=== PATIENT | male | born 1960 | race American Indian/Alaskan Native ===

== ENCOUNTER 2020-12-20 16:14 | Observation (INO) | payer OTHER ==
[2020-12-20] MEDS ORDERED: SODIUM CHLORIDE 0.9% 1000 ML 1,000 ML IV ONE (17:17)
[2020-12-20] MEDS ORDERED: ONDANSETRON 4 MG/2 ML INJ IV ONE (17:17)
[2020-12-20] MEDS ORDERED: MORPHINE 4 MG/1 ML INJ IV ONE (17:17)
--- NOTE | 2020-12-20 17:24 | Emergency Department Report ---
- General Chief complaint: Skin/Abscess/Foreign Body Stated complaint: PAIN/ABCESS/BUTTOCKS Time Seen by Provider: 12/20/20 17:11 Source: patient Mode of arrival: Ambulatory Limitations: No Limitations - History of Present Illness Initial comments: pt is a 60 yo male who presents to the ED with c/o right sided buttock abscess that began on 12/09/2020. he states it began worsening and increasing in size and pain in the last 5 days. he denies any abrasions, scratching, or being bit by anything that he is aware of. he denies any drainage, fever, nausea, vomiting, diarrhea, chills. he denies ever having this in the past. he states he was taking ibuprofen with some relief but states he was taking it every 3 hours. pmhx htn. he states he has not taking his BP medication in two days, he states he forgets. no allergies to meds. - Related Data Allergies Allergy/AdvReac Type Severity Reaction Status Date / Time No Known Allergies Allergy Verified 12/20/20 21:30 Abscess Boil HPI - HPI Chief Complaint: Skin/Abscess/Foreign Body Stated Complaint: PAIN/ABCESS/BUTTOCKS Time Seen by Provider: 12/20/20 17:11 Allergies/Adverse Reactions: Allergies Allergy/AdvReac Type Severity Reaction Status Date / Time No Known Allergies Allergy Verified 12/20/20 21:30 ED Review of Systems ROS: Stated complaint: PAIN/ABCESS/BUTTOCKS Other details as noted in HPI Comment: All other systems reviewed and negative ED Past Medical Hx - Past Medical History Hx Asthma: Yes Additional medical history: SLEEP APNEA - Surgical History Past Surgical History?: No - Social History Smoking Status: Current Every Day Smoker Substance Use Type: Alcohol ED Physical Exam - General Limitations: No Limitations General appearance: alert, in no apparent distress - Head Head exam: Present: atraumatic, normocephalic - Eye Eye exam: Present: normal appearance - ENT ENT exam: Present: mucous membranes moist - Respiratory Respiratory exam: Absent: respiratory distress, accessory muscle use - Rectal Rectal exam: Present: other (denture packer:андрей sullivan, 7 cm area of induration present to the inner right buttock, does not appear to involve the perineum or scrotum, no necrosis, no drainage, no opening ) - Neurological Exam Neurological exam: Present: alert, oriented X3 - Psychiatric Psychiatric exam: Present: normal affect, normal mood - Skin Skin exam: Present: warm, dry ED Course Vital Signs 12/20/20 12/20/20 12/20/20 16:27 20:01 21:31 Temperature 99 F Pulse Rate 106 H 89 Respiratory 20 18 18 Rate Blood Pressure 153/88 Blood Pressure 110/59 [Left] O2 Sat by Pulse 96 100 97 Oximetry - Consultations Consultation #1: 12/20/20 20:[address] Stanton, general surgery regarding patient presentation and results, advised to give patient Zosyn and to admit to hospitalist service, make patient n.p.o., she will consult on patient in the morning 12/20/20 20:43 called Hospitalist, they are changing shifts and advised to call back 12/20/20 21:[address] Corea, hospitalist will accept and resume care of patient, will admit to hospital service, advised to bridge to surgical unit ED Medical Decision Making - Lab Data Result diagrams: 12/20/20 17:46 12/20/20 17:46 Lab Results 12/20/20 12/20/20 Range/Units 17:46 17:46 WBC 15.8 H (4.5-11.0) K/mm3 RBC 3.70 (3.65-5.03) M/mm3 Hgb 12.0 (11.8-15.2) gm/dl Hct 35.9 (35.5-45.6) % MCV 97 H (84-94) fl MCH 32 (28-32) pg MCHC 33 (32-34) % RDW 14.2 (13.2-15.2) % Plt Count 401 (140-440) K/mm3 Lymph % (Auto) 8.8 L (13.4-35.0) % [place] % (Auto) 8.4 H (0.0-7.3) % Eos % (Auto) 0.8 (0.0-4.3) % Baso % (Auto) 0.6 (0.0-1.8) % Lymph # (Auto) 1.4 (1.2-5.4) K/mm3 [place] # (Auto) 1.3 H (0.0-0.8) K/mm3 Eos # (Auto) 0.1 (0.0-0.4) K/mm3 Baso # (Auto) 0.1 (0.0-0.1) K/mm3 Seg Neutrophils % 81.4 H (40.0-70.0) % Seg Neutrophils # 12.8 H (1.8-7.7) K/mm3 Sodium 137 (137-145) mmol/L Potassium 3.9 (3.6-5.0) mmol/L Chloride 93.1 L (98-107) mmol/L Carbon Dioxide 32 H (22-30) mmol/L Anion Gap 16 mmol/L BUN 15 (9-20) mg/dL Creatinine 1.0 (0.8-1.3) mg/dL Estimated GFR > 60 ml/min BUN/Creatinine Ratio 15 % Glucose 101 H (75-100) mg/dL Calcium 9.2 (8.4-10.2) mg/dL Total Bilirubin 1.10 (0.1-1.2) mg/dL AST 20 (5-40) units/L ALT 29 (7-56) units/L Alkaline Phosphatase 101 (35-129) units/L Total Protein 7.6 (6.3-8.2) g/dL Albumin 3.6 L (3.9-5) g/dL Albumin/Globulin Ratio 0.9 % Vital Signs 12/20/20 12/20/20 12/20/20 16:27 20:01 21:31 Temperature 99 F Pulse Rate 106 H 89 Respiratory 20 18 18 Rate Blood Pressure 153/88 Blood Pressure 110/59 [Left] O2 Sat by Pulse 96 100 97 Oximetry - Radiology Data Radiology results: report reviewed Ordering Physician: MARGARITA DOWNING Date of Service: 12/20/20 Procedure(s): CT abdomen pelvis w con Accession Number(s): [id number] cc: MARGARITA DOWNING CT ABDOMEN AND PELVIS WITH IV CONTRAST INDICATION: History of right gluteal abscess. Evaluate for perirectal abscess. TECHNIQUE: Following the administration of intravenous contrast, multiple axial CT images of the abdomen and pelvis were acquired. Sagittal and coronal reformats were obtained. All CT performed at this facility utilize dose reduction techniques including automated exposure control, iterative reconstruction and weight based dosing when appropriate to reduce patient radiation dose to as low as reasonably achievable. COMPARISON: No prior studies are available for comparison FINDINGS: Limited imaging of the bilateral lung bases demonstrates a trace right pleural effusion. ABDOMEN: The liver, gallbladder, spleen, pancreas, bilateral adrenal glands and right kidney show no evidence of acute abnormality. There is a 6 cm cyst within the lower pole of the left kidney. There is minimal dilatation of the proximal left ureter with tapering of the mid ureter without inflammatory change. The abdominal aorta is normal in caliber. There is no free fluid or evidence of bowel obstruction. The appendix is visualized and appears normal. No mesenteric adenopathy is identified. PELVIS: No free fluid is seen within the pelvis. The urinary bladder appears normal. BONES AND SOFT TISSUES: Evaluation of soft tissue structures demonstrates an enhancing fluid collection within the perirectal soft tissues, right greater than left. This fluid collection measures approximately 8.0 x 7.5 x 5.0 cm. There is moderate soft tissue swelling of the overlying gluteal soft tissues. IMPRESSION: 1. Enhancing perirectal fluid collection as described most compatible with perirectal abscess. 2. Mild dilatation of the proximal left ureter with abrupt tapering to the mid ureter. It is difficult to determine chronicity without prior studies. Considerations would include a uroepithelial lesion. 3. Small right pleural effusion. Signer Name: Janneth Rankin MD Signed: 12/20/2020 8:11 PM Workstation Name: [id number] Transcribed By: EB Dictated By: Janneth Rankin MD Electronically Authenticated By: Janneth Rankin MD Signed Date/Time: 12/20/202010 DD/ 00 TD/TT: - Medical Decision Making pt is a 60 yo male who presents to the ED with c/o right sided buttock abscess that began on 12/09/2020. he states it began worsening and increasing in size and pain in the last 5 days. he denies any abrasions, scratching, or being bit by anything that he is aware of. he denies any drainage, fever, nausea, vomiting, diarrhea, chills. he denies ever having this in the past. he states he was taking ibuprofen with some relief but states he was taking it every 3 hours. pmhx htn. he states he has not taking his BP medication in two days, he states he forgets. no allergies to meds. Initial vitals with tachycardia which improved to normal upon repeat. On exam: denture packer:андрей sullivan, 7 cm area of induration present to the inner right buttock, does not appear to involve the perineum or scrotum, no necrosis, no drainage, no opening. Lab significant for elevated white blood cell count of 15.8. CT abdomen pelvis with IV contrast 1. Enhancing perirectal fluid collection as described most compatible with perirectal abscess. 2. Mild dilatation of the proximal left ureter with abrupt tapering to the mid ureter. It is difficult to determine chronicity without prior studies. Considerations would include a uroepithelial lesion. 3. Small ri ght pleural effusion. Patient given fluids, pain medication, clindamycin. Discussed all results with patient, he is agreeable with admission. Spoke to Dr. Stanton, general surgery regarding patient presentation and results, advised to give patient Zosyn and to admit to hospitalist service, make patient n.p.o., she will consult on patient in the morning.Spoke to Dr. Corea, hospitalist will accept and resume care of patient, will admit to hospital service, advised to bridge to surgical unit. Patient given IV Zosyn and admitted to surgical unit. Discussed case with Dr. Shruti Grullon, ER attending who agrees with plan. Critical care attestation.: If time is entered above; I have spent that time in minutes in the direct care of this critically ill patient, excluding procedure time. ED Disposition Clinical Impression: Perirectal abscess, Left ureter dilated, Pleural effusion Leukocytosis Qualifiers: Leukocytosis type: unspecified Qualified Code(s): D72.829 - Elevated white blood cell count, unspecified Disposition: OP ADMIT IP TO THIS HOSP Is pt being admited?: Yes Does the pt Need Aspirin: No Condition: Fair Referrals: PRIMARY CARE, [Primary Care Provider] - 3-5 Days Time of Disposition: 20:38 Print Language: MALIAN
[2020-12-20 18:35] LABS: Basophils # (Auto) 0.1 K/mm3 (0.0-0.1); Basophils % (Auto) 0.6 % (0.0-1.8); Eosinophils # (Auto) 0.1 K/mm3 (0.0-0.4); Eosinophils % (Auto) 0.8 % (0.0-4.3); Hematocrit 35.9 % (35.5-45.6); Lymphocytes # (Auto) 1.4 K/mm3 (1.2-5.4); Lymphocytes % (Auto) 8.8 % (13.4-35.0); Mean Corpuscular HGB Conc 33 % (32-34); Mean Corpuscular Volume 97 fl (84-94); Monocytes # (Auto) 1.3 K/mm3 (0.0-0.8); Monocytes % (Auto) 8.4 % (0.0-7.3); Platelet Count 401 K/mm3 (140-440); Red Cell Distribution Width 14.2 % (13.2-15.2)
[2020-12-20 18:48] LABS: Alanine Aminotransferase 29 units/L (7-56); Albumin 3.6 g/dL (3.9-5); BUN/Creatinine Ratio 15; Blood Urea Nitrogen 15 mg/dL (9-20); Calcium 9.2 mg/dL (8.4-10.2); Hemolysis Index 0
[2020-12-20] MEDS ORDERED: HYDROmorphone 1 MG/1 ML INJ IV ONE ×3 (19:05→20:55)
--- NOTE | 2020-12-20 20:15 | Cat Scan Report ---
CT ABDOMEN AND PELVIS WITH IV CONTRAST INDICATION: History of right gluteal abscess. Evaluate for perirectal abscess. TECHNIQUE: Following the administration of intravenous contrast, multiple axial CT images of the abdo men and pelvis were acquired. Sagittal and coronal reformats were obtained. All CT performed at this facility utilize dose reduction techniques including automated exposure control, iterative reconstru ction and weight based dosing when appropriate to reduce patient radiation dose to as low as reasonab ly achievable. COMPARISON: No prior studies are available for comparison FINDINGS: Limited imaging of the bilateral lung bases demonstrates a trace right pleural effusion. ABDOMEN: The liver, gallbladder, spleen, pancreas, bilateral adrenal glands and right kidney show no evidence of acute abnormality. There is a 6 cm cyst within the lower pole of the left kidney. There is minimal dilatation of the proximal left ureter with tapering of the mid ureter without inflammatory change. The abdominal aorta is normal in caliber. There is no free fluid or evidence of bowel obstruction. Th e appendix is visualized and appears normal. No mesenteric adenopathy is identified. PELVIS: No free fluid is seen within the pelvis. The urinary bladder appears normal. BONES AND SOFT TISSUES: Evaluation of soft tissue structures demonstrates an enhancing fluid collecti on within the perirectal soft tissues, right greater than left. This fluid collection measures approx imately 8.0 x 7.5 x 5.0 cm. There is moderate soft tissue swelling of the overlying gluteal soft tiss ues. IMPRESSION: 1. Enhancing perirectal fluid collection as described most compatible with perirectal abscess. 2. Mild dilatation of the proximal left ureter with abrupt tapering to the mid ureter. It is difficul t to determine chronicity without prior studies. Considerations would include a uroepithelial lesion. 3. Small right pleural effusion. Signer Name: Janneth Rankin MD Signed: 12/20/2020 8:11 PM Workstation Name: [id number]
[2020-12-20] MEDS ORDERED: PIPERACIL/TAZOBACTA 4.5/NS 100 4.5 GM/100 ML VIAL IV ONE (20:35)
[2020-12-20] MEDS ORDERED: ONDANSETRON 4 MG/2 ML INJ IV PRN (21:26)
[2020-12-20] MEDS ORDERED: ACETAMINOPHEN 325 MG TAB PO PRN (21:26)
[2020-12-20] MEDS: SODIUM CHLORIDE 0.9% 1000 ML 1,000 ML IV SCH (23:45)
[2020-12-21] MEDS: HYDROmorphone 1 MG/1 ML INJ IV PRN ×2 (00:38→06:27)
[2020-12-21] MEDS: PIPERACIL/TAZOBACTA 4.5/NS 100 4.5 GM/100 ML VIAL IV SCH ×3 (06:28→21:45)
--- NOTE | 2020-12-21 06:35 | History and Physical Report ---
History of Present Illness Date of examination: 12/20/20 Date of admission: 12/20/20 21:26 Chief complaint: Rectal pain History of present illness: History of presenting illness, patient is a 60-year-old male who said he has been having rectal pain going on for about 5 days and has become progressively worse and occurs with sitting down and bowel movement. There is no history of trauma to the rectal area no history of insect bite, there is no history of hematochezia, nausea vomiting and there was no history of fever or chills. Past History Past Medical History: hypertension, other (SLEEP APNEA) Past Surgical History: No surgical history Social history: no significant social history Family history: no significant family history Medications and Allergies Allergies Allergy/AdvReac Type Severity Reaction Status Date / Time No Known Allergies Allergy Verified 12/20/20 21:30 Active Meds: Active Medications Acetaminophen (Acetaminophen 325 Mg Tab) 650 mg PO Q4H PRN PRN Reason: Pain MILD(1-3)/Fever >100.5/SANCHEZ Hydromorphone HCl (Hydromorphone 1 Mg/1 Ml Inj) 1 mg IV Q4H PRN PRN Reason: Pain , Severe (7-10) Last Admin: 12/21/20 06:27 Dose: 1 mg Documented by: Piperacillin Sod/Tazobactam Sod (Zosyn/Ns 4.5gm/100ml) 4.5 gm in 100 mls @ 200 mls/hr IV Q8H [facility]; Protocol Sodium Chloride (Nacl 0.9% 1000 Ml) 1,000 mls @ 100 mls/hr IV DIRECT [facility] Last Admin: 12/20/20 23:45 Dose: 100 mls/hr Documented by: Ondansetron HCl (Ondansetron 4 Mg/2 Ml Inj) 4 mg IV Q8H PRN PRN Reason: Nausea And Vomiting Sodium Chloride (Sodium Chloride 0.9% 10 Ml Flush Syringe) 10 ml IV BID [facility] Sodium Chloride (Sodium Chloride 0.9% 10 Ml Flush Syringe) 10 ml IV PRN PRN PRN Reason: LINE FLUSH Review of Systems Constitutional: no fever, no chills, no sweats, no weakness, no malaise Eyes: bilateral: other (NO BILATERAL EYE SYMPTOMS) Ears, nose, mouth and throat: no ear pain Cardiovascular: no chest pain, no orthopnea, no rapid/irregular heart beat, no lightheadedness, no shortness of breath Respiratory: no cough, no shortness of breath Gastrointestinal: no abdominal pain, no nausea, no vomiting, no hematemesis, no hematochezia Genitourinary Male: no dysuria, no hematuria Rectal: pain, no incontinence, no bleeding, no itching, no hemorrhoids, no discharge, no flatulence Musculoskeletal: no neck pain Integumentary: no rash, no pruritis, no redness Neurological: no weakness, no tingling, no seizures, no migraines, no convulsions, no confusion Psychiatric: no anxiety, no depression Endocrine: no polyuria, no nocturia Exam - Constitutional Vitals: Temp Pulse Resp BP Pulse Ox 100.0 F H 91 H 18 133/67 97 12/21/20 01:00 12/21/20 01:00 12/21/20 01:00 12/21/20 01:00 12/21/20 01:00 General appearance: Present: mild distress - EENT Eyes: Present: PERRL, EOM intact ENT: hearing intact, clear oral mucosa - Neck Neck: Present: supple, normal ROM - Respiratory Respiratory effort: normal - Cardiovascular Heart Sounds: Present: S1 & S2, gallop - Extremities Extremities: no ischemia, No edema - Abdominal General gastrointestinal: Present: soft, non-tender, non-distended, rigid. Absent: tender, distended Male genitourinary: Present: deferred - Rectal Rectal Exam: deferred, other (EXAM ALREADY DONE BY ED PHYSICIAN) - Integumentary Integumentary: Present: clear, warm - Psychiatric Psychiatric: appropriate mood/affect HEART Score - HEART Score Risk factors: 1-2 risk factors Troponin: < normal limit - Critical Actions Critical Actions: 0-3 pts:0.9-1.7%risk of adverse cardiac event.Candidate for discharge Results - Labs CBC & Chem 7: 12/20/20 17:46 12/20/20 17:46 Labs: Laboratory Last Values WBC 15.8 K/mm3 (4.5-11.0) H 12/20/20 17:46 RBC 3.70 M/mm3 (3.65-5.03) 12/20/20 17:46 Hgb 12.0 gm/dl (11.8-15.2) 12/20/20 17:46 Hct 35.9 % (35.5-45.6) 12/20/20 17:46 MCV 97 fl (84-94) H 12/20/20 17:46 MCH 32 pg (28-32) 12/20/20 17:46 MCHC 33 % (32-34) 12/20/20 17:46 RDW 14.2 % (13.2-15.2) 12/20/20 17:46 Plt Count 401 K/mm3 (140-440) 12/20/20 17:46 Lymph % (Auto) 8.8 % (13.4-35.0) L 12/20/20 17:46 [place] % (Auto) 8.4 % (0.0-7.3) H 12/20/20 17:46 Eos % (Auto) 0.8 % (0.0-4.3) 12/20/20 17:46 Baso % (Auto) 0.6 % (0.0-1.8) 12/20/20 17:46 Lymph # (Auto) 1.4 K/mm3 (1.2-5.4) 12/20/20 17:46 [place] # (Auto) 1.3 K/mm3 (0.0-0.8) H 12/20/20 17:46 Eos # (Auto) 0.1 K/mm3 (0.0-0.4) 12/20/20 17:46 Baso # (Auto) 0.1 K/mm3 (0.0-0.1) 12/20/20 17:46 Seg Neutrophils % 81.4 % (40.0-70.0) H 12/20/20 17:46 Seg Neutrophils # 12.8 K/mm3 (1.8-7.7) H 12/20/20 17:46 Sodium 137 mmol/L (137-145) 12/20/20 17:46 Potassium 3.9 mmol/L (3.6-5.0) 12/20/20 17:46 Chloride 93.1 mmol/L (98-107) L 12/20/20 17:46 Carbon Dioxide 32 mmol/L (22-30) H 12/20/20 17:46 Anion Gap 16 mmol/L 12/20/20 17:46 BUN 15 mg/dL (9-20) 12/20/20 17:46 Creatinine 1.0 mg/dL (0.8-1.3) 12/20/20 17:46 Estimated GFR > 60 ml/min 12/20/20 17:46 BUN/Creatinine Ratio 15 % 12/20/20 17:46 Glucose 101 mg/dL (75-100) H 12/20/20 17:46 Calcium 9.2 mg/dL (8.4-10.2) 12/20/20 17:46 Total Bilirubin 1.10 mg/dL (0.1-1.2) 12/20/20 17:46 AST 20 units/L (5-40) 12/20/20 17:46 ALT 29 units/L (7-56) 12/20/20 17:46 Alkaline Phosphatase 101 units/L (35-129) 12/20/20 17:46 Total Protein 7.6 g/dL (6.3-8.2) 12/20/20 17:46 Albumin 3.6 g/dL (3.9-5) L 12/20/20 17:46 Albumin/Globulin Ratio 0.9 % 12/20/20 17:46 Assessment and Plan - Patient Problems (1) Perirectal abscess Current Visit: Yes Status: Acute Plan to address problem: 1. NPO 2. I.V ZOSYN ANTIBIOTIC 3. I.V DILUDID FOR PAIN 4. I.V N/SALINE FLUID 5. SURGICAL CONSULT 6. I.V ZOFRAN FOR NAUSEA AND VOMITING
--- NOTE | 2020-12-21 09:44 | Consultation ---
History of Present Illness Consult date: 12/21/20 Chief complaint: buttock pain - History of present illness History of present illness: 60 year old male who presented with an almost 2 week hx of buttock and rectal pain that progressively got worse. He denies having this pain before or any trauma to the area. He denies fever or chills. He had a CT scan that showed a [id number] abscess collection in the per-rectal space. He says it started draining yesterday and pain is 10/10. Past History Past Medical History: hypertension, other (SLEEP APNEA) Past Surgical History: No surgical history Social history: no significant social history Family history: no significant family history Medications and Allergies Allergies Allergy/AdvReac Type Severity Reaction Status Date / Time No Known Allergies Allergy Verified 12/20/20 21:30 Active Meds: Active Medications Acetaminophen (Acetaminophen 325 Mg Tab) 650 mg PO Q4H PRN PRN Reason: Pain MILD(1-3)/Fever >100.5/SANCHEZ Hydromorphone HCl (Hydromorphone 1 Mg/1 Ml Inj) 1 mg IV Q4H PRN PRN Reason: Pain , Severe (7-10) Last Admin: 12/21/20 06:27 Dose: 1 mg Documented by: Piperacillin Sod/Tazobactam Sod (Zosyn/Ns 4.5gm/100ml) 4.5 gm in 100 mls @ 200 mls/hr IV Q8H [facility]; Protocol Last Admin: 12/21/20 06:28 Dose: 200 mls/hr Documented by: Sodium Chloride (Nacl 0.9% 1000 Ml) 1,000 mls @ 100 mls/hr IV DIRECT [facility] Last Admin: 12/20/20 23:45 Dose: 100 mls/hr Documented by: Ondansetron HCl (Ondansetron 4 Mg/2 Ml Inj) 4 mg IV Q8H PRN PRN Reason: Nausea And Vomiting Sodium Chloride (Sodium Chloride 0.9% 10 Ml Flush Syringe) 10 ml IV BID [facility] Last Admin: 12/20/20 22:00 Dose: 10 ml Documented by: Sodium Chloride (Sodium Chloride 0.9% 10 Ml Flush Syringe) 10 ml IV PRN PRN PRN Reason: LINE FLUSH Review of Systems - Constitutional no fever, no chills - Cardiovascular no chest pain - Respiratory no cough - Gastrointestinal no abdominal pain, no melena, no hematochezia - Genitourinary no dysuria Exam Vital Signs Temp Pulse Resp BP Pulse Ox 99 F 106 H 20 153/88 96 12/20/20 16:27 12/20/20 16:27 12/20/20 16:27 12/20/20 16:27 12/20/20 16:27 - General physical appearance Positive: well developed, well nourished, no distress, moderate pain - Respiratory Positive: normal expansion, normal respiratory effort - Cardiovascular Heart Sounds: Present: S1 & S2 - Abdomen Abdomen: Present: soft. Absent: tender (right gluteal swelling and tenderness with a skin defect draining red/brown fluid) Results - Labs 12/20/20 17:46 12/20/20 17:46 Abnormal lab results 12/20/20 12/20/20 Range/Units 17:46 17:46 WBC 15.8 H (4.5-11.0) K/mm3 MCV 97 H (84-94) fl Lymph % (Auto) 8.8 L (13.4-35.0) % [place] % (Auto) 8.4 H (0.0-7.3) % [place] # (Auto) 1.3 H (0.0-0.8) K/mm3 Seg Neutrophils % 81.4 H (40.0-70.0) % Seg Neutrophils # 12.8 H (1.8-7.7) K/mm3 Chloride 93.1 L (98-107) mmol/L Carbon Dioxide 32 H (22-30) mmol/L Glucose 101 H (75-100) mg/dL Albumin 3.6 L (3.9-5) g/dL Diabetes panel 12/20/20 Range/Units 17:46 Sodium 137 (137-145) mmol/L Potassium 3.9 (3.6-5.0) mmol/L Chloride 93.1 L (98-107) mmol/L Carbon Dioxide 32 H (22-30) mmol/L BUN 15 (9-20) mg/dL Creatinine 1.0 (0.8-1.3) mg/dL Glucose 101 H (75-100) mg/dL Calcium 9.2 (8.4-10.2) mg/dL AST 20 (5-40) units/L ALT 29 (7-56) units/L Alkaline Phosphatase 101 (35-129) units/L Total Protein 7.6 (6.3-8.2) g/dL Albumin 3.6 L (3.9-5) g/dL Calcium panel 12/20/20 Range/Units 17:46 Calcium 9.2 (8.4-10.2) mg/dL Albumin 3.6 L (3.9-5) g/dL Pituitary panel 12/20/20 Range/Units 17:46 Sodium 137 (137-145) mmol/L Potassium 3.9 (3.6-5.0) mmol/L Chloride 93.1 L (98-107) mmol/L Carbon Dioxide 32 H (22-30) mmol/L BUN 15 (9-20) mg/dL Creatinine 1.0 (0.8-1.3) mg/dL Glucose 101 H (75-100) mg/dL Calcium 9.2 (8.4-10.2) mg/dL Adrenal panel 12/20/20 Range/Units 17:46 Sodium 137 (137-145) mmol/L Potassium 3.9 (3.6-5.0) mmol/L Chloride 93.1 L (98-107) mmol/L Carbon Dioxide 32 H (22-30) mmol/L BUN 15 (9-20) mg/dL Creatinine 1.0 (0.8-1.3) mg/dL Glucose 101 H (75-100) mg/dL Calcium 9.2 (8.4-10.2) mg/dL Total Bilirubin 1.10 (0.1-1.2) mg/dL AST 20 (5-40) units/L ALT 29 (7-56) units/L Alkaline Phosphatase 101 (35-129) units/L Total Protein 7.6 (6.3-8.2) g/dL Albumin 3.6 L (3.9-5) g/dL - Imaging CT scan - abdomen: report reviewed, image reviewed CT scan - pelvis: report reviewed, image reviewed Assessment and Plan 60 year old male with a draining per-rectal abscess. Afebrile and stable. Pt is consented for examination under anesthesia and incision and drainage of perirectal abscess. Will take to OR today. Tentative plan is to change packing tomorrow and he can be discharged tomorrow on abx.
--- NOTE | 2020-12-21 09:55 | Event Note ---
Date: 12/21/20 60-year-old male presented with rectal pain x5 days. Patient found to have perirectal abscess on CT scan. Was admitted had I&D done via surgery. Area stable packed plan for discharge with antibiotics in a.m.
[2020-12-21] MEDS ORDERED: BUPIVACAINE/PF (0.5%) 5 MG/1 ML 30 ML VIAL INFILTRATI ONE ×3 (10:16→11:21)
[2020-12-21] MEDS ORDERED: LIDOCAINE (1%) 10 MG/1 ML VIAL 20 ML MDV ONE (10:16)
--- NOTE | 2020-12-21 10:23 | Anesthesia Consultation ---
Anesthesia Consult and Med Hx Date of service: 12/21/20 - Airway Anesthetic Teeth Evaluation: Partials (Upper) ROM Head & Neck: Adequate Mental/Hyoid Distance: Inadequate Mallampati Class: Class II Intubation Access Assessment: Probably Good - Pulmonary Exam CTA: Yes - Pre-Operative Health Status ASA Pre-Surgery Classification: ASA3 Proposed Anesthetic Plan: General - Pulmonary Hx Smoking: No Hx Asthma: Yes Hx Respiratory Symptoms: Yes (Hx. Pleural Effusion) COPD: No Hx Pneumonia: No Hx Sleep Apnea: Yes - Cardiovascular System Hx Hypertension: Yes Hx Heart Attack/AMI: No Hx Angina: No Hx Cardia Arrhythmia: Yes (Possible Atrial Fibrillation) Hx Pacemaker: No - Central Nervous System Hx Neuromuscular Disorder: No Hx Seizures: No CVA: No Hx Psychiatric Problems: No - Gastrointestinal Hx Ulcer: No Hx Gastroesophageal Reflux Disease: No - Endocrine Hx Renal Disease: No Hx Liver Disease: No Hx Insulin Dependent Diabetes: No Hx Non-Insulin Dependent Diabetes: No Hx Thyroid Disease: No - Other Systems Hx Alcohol Use: Yes Hx Substance Use: Yes (CBD Oil) Hx Obesity: Yes (BMI 34.9kg) - Additional Comments Anesthesia Medical History Comments: Patient denied previous anesthesia related complications
--- NOTE | 2020-12-21 10:25 | Anesthesia Day of Surgery ---
Anesthesia Day of Surgery - Day of Surgery Patient Examined: Yes Patient H&P Reviewed: Yes Patient is NPO: Yes Beta Blockers: No Cardiac Clearance: No Pulmonary Clearance: No Santiago's Test: N/A
[2020-12-21] MEDS ORDERED: HYDROmorphone 1 MG/1 ML INJ ONE (10:26)
[2020-12-21] MEDS ORDERED: KETOROLAC 30 MG/1 ML INJ ONE (10:26)
[2020-12-21] MEDS ORDERED: ROCURONIUM 50 MG/5 ML INJ IV ONE (10:26)
[2020-12-21] MEDS ORDERED: LIDOCAINE MPF (2%) 20 MG/1 ML VIAL 5 ML ONE (10:26)
[2020-12-21] MEDS ORDERED: dexAMETHasone 20 MG/5 ML VIAL ONE (10:26)
[2020-12-21] MEDS ORDERED: ONDANSETRON 4 MG/2 ML INJ ONE (10:26)
[2020-12-21] MEDS ORDERED: propofoL 200 MG/20 ML VIAL IV ONE (10:27)
[2020-12-21] MEDS ORDERED: SUCCINYLCHOLINE CHLORIDE 200 MG/10 ML INJ MDV ONE (10:29)
[2020-12-21] MEDS ORDERED: LACTATED RINGERS 1,000 ML ONE (10:32)
[2020-12-21] MEDS ORDERED: LIDOCAINE (1%) 10 MG/1 ML VIAL 20 ML MDV INFILTRATI ONE ×2 (11:20)
[2020-12-21] MEDS ORDERED: SODIUM CHLORIDE 0.9% IRR 1,500 ML BOTTLE IR ONE (11:20)
[2020-12-21] MEDS ORDERED: PHENYLEPHRINE/NS 1,000 MCG/10 ML SYRINGE (OR USE) IV ONE (11:31)
--- NOTE | 2020-12-21 12:21 | Operative Report ---
Operative Report Operative Report: Date: December 21, 2020 Surgeon: bIan Stanton MD Preop diagnosis: Perirectal abscess Postop diagnosis: Same as preop Procedure performed: Incision and drainage of perirectal abscess with examination under anesthesia Anesthesia:GETA Indication: Patient is a 60-year-old gentleman who presented to the emergency room with an almost 2-week history of worsening gluteal and rectal pain. A CT scan was performed which showed a 7 x 8 x 5 cm perirectal abscess. Patient was consented for incision and drainage. Details of procedure: Patient was taken to the OR suite and laid in supine position. Bilateral SCDs were placed. General anesthesia was induced via successful endotracheal tube intubation. Patient was then carefully placed in prone position on the OR table. Patient's buttock was prepped and draped in sterile fashion. There was noted to be some drainage coming from the rectum to the anus. It was unclear if this was purulent drainage or stool. No drainage could be elicited with pressure on the right gluteal fluctuant area under which the abscess was located. The right gluteal fullness was incised with an 11 blade scalpel. There was immediate drainage of pus and blood. Aerobic and anaerobic cultures were taken and sent to pathology. There was manual probing of this cavity breaking up any loculations. The cavity measured approximately 7 x 6 x 5 cm. The cavity was then copiously irrigated with normal saline and peroxide. With an anal speculum the rectum was then examined, there was no gross obvious rectal mucosal defect from which therapy to be a definitive connection between the rectum and the abscess cavity. It was thought that the anal drainage could have been watery stool. The abscess cavity was packed with half-inch iodoform gauze followed by dressing. Patient was carefully returned to supine position awoken extubated successfully. Patient was taken to recovery in stable condition. Specimen: Wound culture EBL: Less than 20 mL Complication: None immediate
--- NOTE | 2020-12-21 13:16 | Post Anesthesia Evaluation ---
- Post Anesthesia Evaluation Patient Participated: Yes Airway Patent: Yes Stable Respiratory Function: Yes Nausea/Vomiting: No Temp > 96.8F: Yes Pain Manageable: Yes Adequeate Hydration: Yes Anesthesia Complications: No Block Receding Appropriately: Not Applicable Patient on Ventilator: No
[2020-12-21] MEDS: KETOROLAC 30 MG/1 ML INJ IV SCH ×3 (13:55→23:51)
[2020-12-21] MEDS: oxyCODONE /ACETAMINOPHEN 5-325MG TAB PO PRN (21:44)
[2020-12-22] MEDS: KETOROLAC 30 MG/1 ML INJ IV SCH ×3 (05:38→18:15)
[2020-12-22] MEDS: PIPERACIL/TAZOBACTA 4.5/NS 100 4.5 GM/100 ML VIAL IV SCH ×3 (05:38→21:15)
[2020-12-22] MEDS: SODIUM CHLORIDE 0.9% 1000 ML 1,000 ML IV SCH (05:44)
[2020-12-22 06:27] LABS: Hematocrit 30.5 % (35.5-45.6); Mean Corpuscular HGB Conc 33 % (32-34); Mean Corpuscular Volume 98 fl (84-94); Platelet Count 322 K/mm3 (140-440); Red Cell Distribution Width 14.4 % (13.2-15.2)
--- NOTE | 2020-12-22 09:46 | Discharge Summary ---
Providers - Providers Date of Admission: 12/20/20 21:26 Date of discharge: 12/22/20 Attending physician: GUCCI DOMINGUEZ 12/20/20 20:35 Consult to Physician [CONS] Stat Comment: Consulting Provider: HERMAN SMITH Physician Instructions: Reason For Exam: perirectal abscess Primary care physician: INDUSTRIAL ECOLOGY TECHNICIAN Hospitalization Condition: Good Hospital course: 60-year-old presented with gluteal pain x2 weeks. Work-up revealed perirectal abscess. Patient was taken to the OR for I&D. Was successful. Patient only complains of some incisional pain to the area. Has been pack clean. Minimal drainage. Stable for discharge. Will discharge with antibiotics Keflex 3 times daily for 7 days with follow-up with general surgery and primary care physician next 7 to 10 days. Also home health for wound treatment and packing. Disposition: DC- TO HOME OR SELFCARE Core Measure Documentation - Palliative Care Palliative Care/ Comfort Measures: Not Applicable - Core Measures Any of the following diagnoses?: none Exam - Constitutional Vitals: Temp Pulse Resp BP Pulse Ox 98.9 F 69 18 130/71 98 12/22/20 07:33 12/22/20 07:33 12/22/20 07:33 12/22/20 07:33 12/22/20 07:33 General appearance: Present: no acute distress, well-nourished - EENT Eyes: Present: PERRL ENT: hearing intact, clear oral mucosa - Neck Neck: Present: supple, normal ROM - Respiratory Respiratory effort: normal Respiratory: bilateral: CTA - Cardiovascular Heart Sounds: Present: S1 & S2. Absent: rub, click - Extremities Extremities: pulses symmetrical, No edema Extremity abnormal: other (Incision site looks clean no evidence of early in fection. Some tenderness minimal drainage.) Peripheral Pulses: within normal limits - Abdominal General gastrointestinal: Present: soft, non-tender, non-distended, normal bowel sounds Male genitourinary: Present: normal - Integumentary Integumentary: Present: clear, warm, dry - Musculoskeletal Musculoskeletal: gait normal, strength equal bilaterally - Psychiatric Psychiatric: appropriate mood/affect, intact judgment & insight - Neurologic Neurologic: CNII-XII intact, moves all extremities Plan Activity: advance as tolerated Diet: regular Wound: keep clean and dry, change dressing, per your surgeon's advice, per wound nurse instructions Special Instructions: home health RN Follow up with: PRIMARY CARE, [Primary Care Provider] - 3-5 Days Prescriptions: cephALEXin [Keflex] 500 mg PO Q8HR #20 cap oxyCODONE /ACETAMINOPHEN [Percocet 5/325 mg] 2 tab PO Q4H PRN #30 tablet PRN Reason: Pain, Moderate (4-6)
[2020-12-22 10:18] LABS: Total Cells Counted 100
[2020-12-22 10:20] LABS: Platelet Estimate Consistent w Auto; RBC Morphology Normal
[2020-12-22] MEDS: MORPHINE 2 MG/1 ML INJ IV PRN (10:57)
--- NOTE | 2020-12-22 11:50 | Progress Note ---
Assessment and Plan POD#1 s/p I&D of right prei-rectal abscess. Afebrile and stable with continued leukocytosis. Clinically improved but will continue to need packed dressing changes daily. Wound care consulted to help arrange outpatient wound care before discharge. Continue abx and will repeat cbc in am. Most likely can discharge tomorrow after seen by wound care. Subjective Date of service: 12/22/20 Patient Reports: Positive: feels better, pain is less Narrative: No acute events overnight. Pt says that he is feeling much better and can lay on his back for the first time in a while. Objective Vital Signs - 12hr 12/22/20 12/22/20 12/22/20 00:21 05:38 07:33 Temperature 98.1 F 97.8 F 98.9 F Pulse Rate 81 70 69 Respiratory 20 20 18 Rate Blood Pressure 132/62 142/69 130/71 O2 Sat by Pulse 95 97 98 Oximetry - General physical appearance well developed, well nourished, no distress, moderate pain - Respiratory normal expansion, normal respiratory effort (R gluteal / kevin-rectal abscess packing dressing changed. No purulent drainage or odor. Less tender than pre-op) - Labs 12/22/20 04:59 12/20/20 17:46
--- NOTE | 2020-12-22 12:48 | Event Note ---
Date: 12/22/20 Patient may go hello until the a.m. Will require follow-up with wound clinic. Will have wound real estate specialist evaluate patient prior to discharge.
[2020-12-22] MEDS: oxyCODONE /ACETAMINOPHEN 5-325MG TAB PO PRN (21:16)
[2020-12-23] MEDS: KETOROLAC 30 MG/1 ML INJ IV SCH ×2 (03:54→05:47)
[2020-12-23] MEDS: SODIUM CHLORIDE 0.9% 1000 ML 1,000 ML IV SCH (04:00)
[2020-12-23] MEDS: PIPERACIL/TAZOBACTA 4.5/NS 100 4.5 GM/100 ML VIAL IV SCH (05:52)
[2020-12-23 06:07] LABS: Hematocrit 30.2 % (35.5-45.6); Mean Corpuscular HGB Conc 33 % (32-34); Mean Corpuscular Volume 98 fl (84-94); Platelet Count 356 K/mm3 (140-440); Red Blood Count 3.09 M/mm3 (3.65-5.03); Red Cell Distribution Width 14.9 % (13.2-15.2)
[2020-12-23 07:33] LABS: Total Cells Counted 100
[2020-12-23 07:36] LABS: Hypochromasia Few; Platelet Estimate Consistent w Auto
[2020-12-23] MEDS: MORPHINE 2 MG/1 ML INJ IV PRN (10:20)
--- NOTE | 2020-12-23 11:05 | Discharge Summary ---
Providers - Providers Date of Admission: 12/20/20 21:26 Date of discharge: 12/23/20 Attending physician: GUCCI DOMINGUEZ 12/20/20 20:35 Consult to Physician [CONS] Stat Comment: Consulting Provider: HERMAN SMITH Physician Instructions: Reason For Exam: perirectal abscess 12/22/20 11:45 Consult to Wound/ET Nurse [CONS] Routine Reason For Exam: R kevin-rectal abscess s/p i&d. needs out pt appt Primary care physician: GUN BARREL FINISHER Hospitalization Condition: Good Hospital course: Patient admitted for perirectal abscess. Had surgical I&D. Tolerated procedure well. Patient to have evaluation by wound treatment physician and wound treatment staff today to formulate plan of how to proceed with wound care over the next several weeks. Patient will also receive home health as well. Disposition: TO HOME OR SELFCARE Core Measure Documentation - Palliative Care Palliative Care/ Comfort Measures: Not Applicable - Core Measures Any of the following diagnoses?: none Exam - Constitutional Vitals: Temp Pulse Resp BP Pulse Ox 98.5 F 61 20 158/83 97 12/23/20 07:39 12/23/20 07:39 12/23/20 07:39 12/23/20 07:39 12/23/20 07:39 General appearance: Present: no acute distress, well-nourished - EENT Eyes: Present: PERRL ENT: hearing intact, clear oral mucosa - Neck Neck: Present: supple, normal ROM - Respiratory Respiratory effort: normal Respiratory: bilateral: CTA - Cardiovascular Heart Sounds: Present: S1 & S2. Absent: rub, click - Extremities Extremities: pulses symmetrical, No edema Peripheral Pulses: within normal limits - Abdominal General gastrointestinal: Present: soft, non-tender, non-distended, normal bowel sounds Male genitourinary: Present: normal - Integumentary Integumentary: Present: clear, warm, dry - Musculoskeletal Musculoskeletal: gait normal, strength equal bilaterally - Psychiatric Psychiatric: appropriate mood/affect, intact judgment & insight - Neurologic Neurologic: CNII-XII intact, moves all extremities Plan Activity: advance as tolerated Weight Bearing Status: Weight Bear as Tolerated Diet: regular, low fat (May be discharged after evaluation from wound management team) Follow up with: PRIMARY CARE, [Primary Care Provider] - 3-5 Days Prescriptions: cephALEXin [Keflex] 500 mg PO Q8HR #20 cap oxyCODONE /ACETAMINOPHEN [Percocet 5/325 mg] 2 tab PO Q4H PRN #30 tablet PRN Reason: Pain, Moderate (4-6)
[2020-12-23 12:04] VITALS: BP 128/72
--- NOTE | 2020-12-23 12:36 | Post Anesthesia Evaluation ---
- Post Anesthesia Evaluation Patient Participated: Yes Airway Patent: Yes Stable Respiratory Function: Yes Nausea/Vomiting: No Temp > 96.8F: Yes Pain Manageable: Yes Adequeate Hydration: Yes Anesthesia Complications: No Block Receding Appropriately: Not Applicable Patient on Ventilator: No Other Comments: Patient seen second day post-op. He was in no acute distress and no post-opreative complication noted.
== END 2020-12-23 14:30 | disposition home health service (06) ==
LOC: ED 16:14 → INTOOBSV 21:26 → 3B 21:26
PROVIDERS: ADMIT Internal Medicine; ATTEND Internal Medicine
DX: K61.1 Rectal abscess (principal); D72.829 Elevated white blood cell count, unspecified; J90 Pleural effusion, not elsewhere classified; N28.82 Megaloureter; I10 Essential (primary) hypertension; G47.30 Sleep apnea, unspecified; J45.909 Unspecified asthma, uncomplicated; F17.210 Nicotine dependence, cigarettes, uncomplicated
CPT/HCPCS: 36415; 46040; 74177; 80053; 85025; 94660; 96361; 96365; 96366; 96367; 96375; 96376; 99285; G0378; J0330; J1100; J1170; J1885; J2270; J2370; J2405; J2543; J2704; J7030; J7120; Q9967; 85007

== ENCOUNTER 2020-12-30 10:05 | Outpatient (CLI) | payer OTHER ==
[2020-12-30] MEDS ORDERED: LIDOCAINE (4%) 40 MG/ML TOPICAL SOLN 50 ML BOTTLE TP ONE (10:16)
== END 2020-12-30 10:06 | disposition home or self-care (01) ==
LOC: WOUND 10:05
PROVIDERS: ATTEND Surgery
DX: T81.89XA Other complications of procedures, not elsewhere classified, initial encounter (principal); K61.1 Rectal abscess; I10 Essential (primary) hypertension; H91.90 Unspecified hearing loss, unspecified ear; G47.30 Sleep apnea, unspecified; M19.90 Unspecified osteoarthritis, unspecified site; J45.909 Unspecified asthma, uncomplicated; Z79.82 Long term (current) use of aspirin; Z87.891 Personal history of nicotine dependence; Y83.8 Other surgical procedures as the cause of abnormal reaction of the patient, or of later complication, without mention of misadventure at the time of the procedure; Y92.238 Other place in hospital as the place of occurrence of the external cause
CPT/HCPCS: 99205; 99215; G0463

== ENCOUNTER 2021-01-06 09:24 | Outpatient (CLI) | payer OTHER ==
[2021-01-06] MEDS ORDERED: LIDOCAINE (4%) 40 MG/ML TOPICAL SOLN 50 ML BOTTLE TP ONE (09:28)
== END 2021-01-06 09:25 | disposition home or self-care (01) ==
LOC: WOUND 09:24
PROVIDERS: ATTEND Surgery
DX: T81.89XD Other complications of procedures, not elsewhere classified, subsequent encounter (principal); K61.1 Rectal abscess; I10 Essential (primary) hypertension; J45.909 Unspecified asthma, uncomplicated; G47.30 Sleep apnea, unspecified; H91.90 Unspecified hearing loss, unspecified ear; M19.90 Unspecified osteoarthritis, unspecified site; Z79.82 Long term (current) use of aspirin; Z87.891 Personal history of nicotine dependence; Y83.8 Other surgical procedures as the cause of abnormal reaction of the patient, or of later complication, without mention of misadventure at the time of the procedure
CPT/HCPCS: 99214; G0463